=== PATIENT | female | born 1985 | race Asian ===

== ENCOUNTER 2020-08-15 01:24 | Emergency (ER) | payer BC ==
[2020-08-15 01:39] VITALS: BP 109/70; PULSE 105; TEMP 99.3; BMI 30.7
== END 2020-08-15 02:56 | disposition home or self-care (01) ==
LOC: JER 01:24
DX: F12.90 Cannabis use, unspecified, uncomplicated (principal)
CPT/HCPCS: 93005; 93010; 99283-25